=== PATIENT | male | born 1960 | race Caucasian/White ===

== ENCOUNTER 2021-11-26 10:44 | Emergency (ER) | payer OTHER, SELFPAY ==
--- NOTE | ~2021-11-26 | XR_ITS ---
EXAMINATION: XR ankle RT min 3V, XR knee RT 2V, XR tibia fibula RT 2V DATE: 11/26/2021 11:51 INDICATION: Right knee, ankle and lower leg pain post fall on ice TECHNIQUE: 1. AP and lateral views of the right knee were obtained. 2. AP and lateral views of the right tibia and fibula were obtained. 3. AP, mortise, and lateral views of the right ankle were obtained. COMPARISON: None. FINDINGS: Bone alignment is normal from the right knee through the right ankle and visualized right foot. No fr actures. Joint spaces are normal. Suggestion of possible small right knee joint effusion however the lateral projection is slightly obliqued suboptimal profiling of the region of the suprapatellar pouch . No ankle joint effusion. Small Achilles and plantar calcaneal spurs. IMPRESSION: 1. No acute osseous abnormality at the right knee, lower leg, ankle and visualized foot. 2. Possible small to moderate sized right knee joint effusion. Reviewed, dictated and finalized at location A. ET STRINGER IMPRESSION: 1. No acute osseous abnormality at the right knee, lower leg, ankle and visuali zed foot. 2. Possible small to moderate sized right knee joint effusion. IMPRESSION: 1. No acute osseous abnormality at the right knee, lower leg, ankle and visuali zed foot. 2. Possible small to moderate sized right knee joint effusion.
[2021-11-26 11:00] VITALS: BP 112/70; PULSE 66; RESP 18; TEMP 36.6; O2SAT 100
--- NOTE | 2021-11-26 11:57 | ED.LOWEXIN ---
HPI - Extremity Injury (Lower) General Chief Complaint: Extremity Injury, Lower Stated Complaint: R leg pain Time Seen by Provider: 11/26/21 11:19 Source: patient Mode of arrival: ambulatory Limitations: no limitations History of Present Illness HPI Narrative: Patient is a 61-year-old male complaining of right knee, right leg and right ankle pain after he slipped on a slippery surface at work. Patient states his pain is a 9 out of 10, aching, worse with palpation and movement. Patient was able to stand up and ambulate after the fall. Patient denies any head, neck, chest, back, abdomen, pelvis or any other extremity pain/injury. Related Data Allergies Allergy/AdvReac Type Severity Reaction Status Date / Time No Known Allergies Allergy Verified 11/26/21 11:05 Review of Systems Review of Systems: All systems reviewed & are unremarkable except as noted in HPI and below Constitutional: Constitutional: Denies body ache(s), Denies chills, Denies excessive sweating, Denies fatigue, Denies fever(s), Denies headache(s), Denies lethargy, Denies malaise, Denies weakness and Denies weight loss Eyes: Eyes: Denies blurry vision, Denies change in vision and Denies loss of vision ENT: Denies dizziness, Denies ear discharge, Denies headache(s), Denies lip swelling, Denies epistaxis, Denies nasal congestion, Denies neck pain, Denies throat swelling and Denies tongue swelling Cardiovascular: Cardiovascular: Denies chest pain, Denies chest pain at rest, Denies chest pain with activity, Denies diaphoresis, Denies rapid heart rate, Denies edema, Denies irregular heart rhythm, Denies lightheadedness, Denies palpitations, Denies dyspnea and Denies dyspnea on exertion Respiratory: Respiratory: Denies chest congestion, Denies cough, Denies hemoptysis, Denies dyspnea and Denies dyspnea on exertion Gastrointestinal: Gastrointestinal: Denies abdominal pain, Denies melena, Denies hematochezia, Denies diarrhea, Denies nausea, Denies vomiting and Denies hematemesis Musculoskeletal: Musculoskeletal: Denies neck pain and Denies numbness Neurologic: Denies Abnormal speech present, Denies abnormal gait, Denies confusion, Denies dizziness, Denies headache(s), Denies focal weakness, Denies loss of vision, Denies numbness, Denies Other visual disturbances, Denies Sensory deficit (Neuro) and Denies weakness Psychiatric: Psychiatric: Denies confusion, Denies depression, Denies auditory hallucinations, Denies homicidal ideation and Denies suicidal ideation Endocrine: Endocrine: Denies cold intolerance, Denies excessive sweating, Denies fatigue, Denies heat intolerance and Denies palpitations Hematologic/Lymphatic: Hematologic/Lymphatic: Denies easy bleeding and Denies easy bruising Allergic/Immunologic: Allergic/Immunologic: Denies lip swelling, Denies throat swelling and Denies tongue swelling PMFSH Comments Past medical history: None Family history: None Social history: Positive for smoker, no EtOH or drug use Exam Const: General: cooperative, healthy appearing, comfortable, no acute distress, well developed, alert and awake; No confusion Orientation/consciousness: oriented to person, oriented to place, oriented to time, patient oriented x3 and No confusion Limitations: no limitations HENMT: Head: normal to inspection, normocephalic and atraumatic Ears: hearing grossly normal bilaterally, TM normal on the right and TM normal on the left General nose exam: Normal external nose present, Normal nares present and No nasal discharge present Face and sinus: normal facial exam Mouth: Yes Normal oral and palatal mucosa present, Yes lip normal, Yes tongue normal and Yes oropharynx normal Throat: posterior oropharynx normal, tonsils normal and uvula midline Eyes: General: appearance normal, both eyes and all related structures Pupils: Equal, round and reactive pupils present EOM: EOMs intact bilaterally Neck: Neck: normal visual inspection, full ROM, no lymphadenopathy
[2021-11-26] MEDS: KETOROLAC 30 MG/ML VIAL (*BKC) IV PUSH (12:05)
[2021-11-26] MEDS: HYDROcodone/acetaminophen (*CRX) 5-325 MG TABLET 1 TAB PO (12:06)
[2021-11-26] MEDS: diazePAM (*CRX) 5 MG TABLET PO (12:06)
[2021-11-26 14:41] VITALS: BP 136/87; PULSE 86; RESP 18; O2SAT 97
== END 2021-11-26 14:42 | disposition home or self-care (01) ==
PROVIDERS: Emergency Provider Emergency Medicine
DX: S86.911A Strain of unspecified muscle(s) and tendon(s) at lower leg level, right leg, initial encounter (principal); W18.40XA Slipping, tripping and stumbling without falling, unspecified, initial encounter
CPT/HCPCS: 73560; 73590; 73610; 96374; 99284; A9270; J1885

== ENCOUNTER 2022-12-02 20:06 | Emergency (ER) | payer OTHER, SELFPAY ==
[2022-12-02 20:27] VITALS: BP 151/80; PULSE 84; RESP 16; TEMP 36.8; O2SAT 98
[2022-12-02 20:38] LABS: Basophils Absolute Auto 0.1 K/mm3 (0.0-0.1); Basophils Percent Auto 0.5 % (0.2-1.2); Eosinophils Absolute Auto 0.5 K/mm3 (0-0.3); Eosinophils Percent Auto 4.9 % (0-4.4); Hematocrit 43.2 % (42.0-52.0); Hemoglobin 14.9 g/dL (14.0-18.0); Immature Granulocyte Absolute 0.03 K/mm3 (0.00-0.031); Immature Granulocyte Percent A 0.3 % (0-0.5); Lymphocytes Absolute Auto 1.71 K/mm3 (0.9-3.2); Lymphocytes Percent Auto 18.6 % (18.3-44.2); Mean Corpuscular HGB Conc 34.5 g/dl (32-36); Mean Corpuscular Hemoglobin 30.2 pg (26-34); Mean Corpuscular Volume 87.6 fl (80-100); Mean Platelet Volume 10.1 fl (7.4-10.4); Monocytes Absolute Auto 0.5 K/mm3 (0.1-0.6); Monocytes Percent Auto 5.5 % (2.6-8.5); Neutrophils Absolute Auto 6.5 K/mm3 (1.3-6.7); Neutrophils Percent Auto 70.2 % (45.5-73.1); Platelet Count Result 206 k/mm3 (150-375); Red Blood Count 4.93 M/mm3 (4.6-6.20); White Blood Count 9.2 K/mm3 (4.5-10.0)
[2022-12-02 20:46] LABS: Anion Gap 8 mmol/L (8-16); Blood Urea Nitrogen 20 mg/dL (9-20); Calcium 8.7 mg/dL (8.4-10.2); Carbon Dioxide 25 mmol/L (22-30); Chloride 107 mmol/L (98-107); Estimated CRCL calculation 70 ml/min; Estimated Glomerular Filt Rate > 60; Glucose 149 mg/dL (65-110); Potassium 3.7 mmol/L (3.4-5.0); Sodium 140 mmol/L (137-145)
[2022-12-02 20:49] LABS: Prothrombin Time 12.9 Seconds (11.1-14.7)
[2022-12-02 20:50] LABS: Partial Thromboplastin Time 27.8 SECONDS (22.3-36.8)
[2022-12-02 21:33] VITALS: BP 146/92; PULSE 84; RESP 12; O2SAT 100
--- NOTE | 2022-12-02 21:34 | ED.GENADULT ---
HPI - General Adult General Chief complaint: Urogenital-Male Stated complaint: SWELLING AFTER ED SHOT Time Seen by Provider: 12/02/22 21:22 History of Present Illness HPI narrative: Is a 62-year-old male presenting ED with a priapism. Patient was at an ED clinic earlier today. He said that the intervention involved him getting tapped right above his penis on the pubic bone. There is no actual injection into his penis that he is aware of.After that he was able to get an erection. He did get it to detumesce in the clinic. However when he went home it was still partially erect. Patient then came to the hospital for re-evaluation. Related Data Allergies Allergy/AdvReac Type Severity Reaction Status Date / Time No Known Allergies Allergy Verified 11/26/21 11:05 [facility] Past Medical History Medical History Hypertension Social History Social History Social History: Denies alcohol tobacco or drug use Exam Narrative: APPEARANCE: No apparent distress. Head: atraumatic. EYES: EOMI, NOSE: Atraumatic NECK: Trachea midline RESPIRATORY: No increased rate of breathing CARDIOVASCULAR: RRR, ABDOMINAL: Non-distended MUSCULOSKELETAl: No obvious deformities NEURO: Alert. Moving 4/4 extremities SKIN:: Warm, dry. Normal color PSYCHIATRIC: Normal affect Genital exam: detumesced penis Course Vital Signs Vital signs: Vital Signs Temperature 98.2 F 12/02/22 20:27 Pulse Rate 84 12/02/22 20:27 Respiratory Rate 16 12/02/22 20:27 Blood Pressure 151/80 H 12/02/22 20:27 Pulse Oximetry 98 12/02/22 20:27 Oxygen Delivery Room Air 12/02/22 20:27 Temperature 98.2 F 12/02/22 20:27 Pulse Rate 84 12/02/22 21:33 Respiratory Rate 12 12/02/22 21:33 Blood Pressure 146/92 H 12/02/22 21:33 Pulse Oximetry 100 12/02/22 21:33 Oxygen Delivery Room Air 12/02/22 20:27 Medical Decision Making MDM Narrative Medical decision making narrative: -Presentation: This 62-year-old presenting with priapism. It resolved at time of evaluation. -DDX includes but is not limited to: Priapism, , normal erection -Co-morbidities complicating care:Hypertension, ED -Social determinants of health: Non-contributary -External Chart Review: none -Hx from independent Sources: none -Discussion of Management/Consultants: none -Independent interpretation of studies: none -Dx tests considered but not ordered: ABG, the patient no longer has an erection -Procedures: none -Interventions: none -Shared decision making / Disposition: patient arrived for priapism. It resolved at time of my evaluation. Patient given return precautions. -RX Vital Signs Vital Signs: Vital Signs Temperature 98.2 F 12/02/22 20:27 Pulse Rate 84 12/02/22 20:27 Respiratory Rate 16 12/02/22 20:27 Blood Pressure 151/80 H 12/02/22 20:27 Pulse Oximetry 98 12/02/22 20:27 Oxygen Delivery Room Air 12/02/22 20:27 Temperature 98.2 F 12/02/22 20:27 Pulse Rate 84 12/02/22 21:33 Respiratory Rate 12 12/02/22 21:33 Blood Pressure 146/92 H 12/02/22 21:33 Pulse Oximetry 100 12/02/22 21:33 Oxygen Delivery Room Air 12/02/22 20:27 Lab Data 12/02/22 20:23 12/02/22 20:23 Labs: Lab Results 12/02/22 12/02/22 12/02/22 Range/Units 20:23 20:23 20:23 WBC 9.2 (4.5-10.0) K/mm3 RBC 4.93 (4.6-6.20) M/mm3 Hgb 14.9 (14.0-18.0) g/dL Hct 43.2 (42.0-52.0) % MCV 87.6 (80-100) fl MCH 30.2 (26-34) pg MCHC 34.5 (32-36) g/dl RDW 13.0 (11.5-14.5) % Plt Count 206 (150-375) k/mm3 MPV 10.1 (7.4-10.4) fl Immature Gran % (Auto) 0.3 (0-0.5) % Neut % (Auto) 70.2 (45.5-73.1) % Lymph % (Auto) 18.6 (18.3-44.2) % Grant % (Auto) 5.5 (2.6-8.5) % Eos % (Auto) 4.9 H (0-4.4) % Baso % (Auto) 0.5 (0.2-1.2) % Ly
== END 2022-12-02 22:06 | disposition home or self-care (01) ==
LOC: ANHED 21:54
PROVIDERS: Emergency Medicine; Emergency Provider Emergency Medicine
DX: N48.30 Priapism, unspecified (principal); I10 Essential (primary) hypertension
CPT/HCPCS: 36415; 80048; 85025; 85610; 85730; 99283

== ENCOUNTER 2023-05-03 10:14 | Emergency (ER) | payer OTHER, SELFPAY ==
[2023-05-03] VITALS (21 sets, daily range): BP systolic 124–135; BP diastolic 81–106; PULSE 66–86; RESP 12–19; O2SAT 95–100
--- NOTE | ~2023-05-03 | XR_ITS ---
Clinical Indication: Chest pain PA and lateral views of the chest: Comparison: None Findings: The lungs are clear, without evidence of focal consolidation or pleural effusion. Cardiome diastinal silhouette is within normal limits. Bones and soft tissues are unremarkable. Impression: Normal chest. Reviewed, dictated and finalized at location . Impression: Normal chest.
--- NOTE | 2023-05-03 10:17 | ECG_ITS ---
Measurements Intervals [place] Rate: 88 P: 55 WA: 143 QRS: 15 QRSD: 118 T: 34 QT: 342 QTc: 414 Interpretive Statements SINUS RHYTHM INTRAVENTRICULAR CONDUCTION DELAY BASELINE ARTIFACT- I, II, III, AVR, AVL, AVF BORDERLINE ECG NO PREVIOUS ECG AVAILABLE FOR COMPARISON Electronically Signed On 05-03-2023 10:59:50 CDT by Keegan Adair D.O.
[2023-05-03 10:41] LABS: Basophils Absolute Auto 0.1 K/mm3 (0.0-0.1); Basophils Percent Auto 0.9 % (0.2-1.2); Eosinophils Absolute Auto 0.3 K/mm3 (0-0.3); Eosinophils Percent Auto 3.1 % (0-4.4); Hemoglobin 14.9 g/dL (14.0-18.0); Immature Granulocyte Absolute 0.03 K/mm3 (0.00-0.031); Immature Granulocyte Percent A 0.4 % (0-0.5); Lymphocytes Absolute Auto 1.52 K/mm3 (0.9-3.2); Lymphocytes Percent Auto 19.1 % (18.3-44.2); Mean Corpuscular HGB Conc 33.9 g/dl (32-36); Mean Corpuscular Volume 88.7 fl (80-100); Monocytes Absolute Auto 0.4 K/mm3 (0.1-0.6); Monocytes Percent Auto 5.5 % (2.6-8.5); Neutrophils Absolute Auto 5.7 K/mm3 (1.3-6.7); Platelet Count Result 253 k/mm3 (150-375); Red Blood Count 4.96 M/mm3 (4.6-6.20)
[2023-05-03 10:48] LABS: Alanine Aminotransferase 26 U/L (6-50); Albumin Level 4.4 g/dL (3.5-5.1); Alkaline Phosphatase 97 U/L (38-126); Anion Gap 9 mmol/L (8-16); Aspartate Amino Transferase 25 U/L (17-59); Bilirubin,Total 0.4 mg/dL (0.2-1.3); Blood Urea Nitrogen 25 mg/dL (9-20); Calcium 9.2 mg/dL (8.4-10.2); Carbon Dioxide 23 mmol/L (22-30); Chloride 106 mmol/L (98-107); Estimated CRCL calculation 57 ml/min; Estimated Glomerular Filt Rate > 60; Glucose 100 mg/dL (65-110); Lipase 63 U/L (23-300); Sodium 138 mmol/L (137-145)
[2023-05-03 10:58] LABS: INR 0.9; Prothrombin Time 12.8 Seconds (11.1-14.7)
[2023-05-03 10:59] LABS: Partial Thromboplastin Time 27.6 SECONDS (22.3-36.8); Troponin I < 0.012 ng/mL (0.000-0.034)
[2023-05-03] MEDS: ASPIRIN 81 MG CHEWABLE TABLET 324 MG PO (11:16)
--- NOTE | 2023-05-03 12:18 | ED.CHESTPAIN ---
HPI - Chest Pain General Chief Complaint: Chest Pain Stated Complaint: chest pain Time Seen by Provider: 05/03/23 11:29 Source: patient, RN notes reviewed and old records reviewed Mode of arrival: ambulatory Limitations: no limitations History of Present Illness HPI narrative: This is a 62 year old male with history of hypertension who presents for evaluation of intermittent chest discomfort. Patient reports he noticed left chest discomfort yesterday while watching tv. He states the pain intermittent and only last for 1 minute. He is unsure of any exacerbating symptoms. He also reports he had right side chest pain as well but it was at a different time than his left chest pain. He denies pain radiating to his back. He denies associated nausea, vomiting, fever, chills, cough, dizziness or diaphoresis with his chest pain. He denies any chest pain currently, Related Data Allergies Allergy/AdvReac Type Severity Reaction Status Date / Time No Known Allergies Allergy Verified 05/03/23 11:32 Review of Systems Constitutional: Constitutional: Denies weakness Cardiovascular: Cardiovascular: Reports chest pain, Denies syncope, Denies rapid heart rate, Denies irregular heart rhythm, Denies leg edema and Denies dyspnea Respiratory: Respiratory: Denies chest congestion, Denies hemoptysis, Denies excessive phlegm production and Denies dyspnea Gastrointestinal: Gastrointestinal: Denies abdominal pain, Denies hematochezia, Denies diarrhea and Denies vomiting Genitourinary: Genitourinary: Denies hematuria, Denies dysuria, Denies penile discharge and Denies testicular pain Musculoskeletal: Musculoskeletal: Denies joint swelling, Denies loss of height and Denies muscle weakness Neurologic: Denies syncope, Denies focal weakness and Denies weakness PMFSH Past Medical History Medical History Hypertension Surgical History Surgical History (Updated 05/03/23 @ 18:29 by Divya Lewis MD) No pertinent past surgical history Social History Social History Social History: Denies alcohol tobacco or drug use Exam Const: General: no acute distress and alert Nutritional Appearance: well nourished Orientation/consciousness: patient oriented x3 Limitations: no limitations HENMT: Head: normal to inspection Eyes: EOM: EOMs intact bilaterally Chest: Chest palpation & inspection: normal inspection of the chest Resp: Effort & Inspection: normal respiratory effort Auscultation: clear to auscultation bilaterally Cardio: Rate: regular rate Rhythm: regular rhythm Heart sounds: no murmurs GI: GI Palp: Yes Soft to palpation, No Tenderness to palpation present (GI), No Guarding due to palpation present (GI) and No Rigid due to palpation Auscultation: normal bowel sounds Skin: General skin exam: normal color Rashes: no rashes Wounds: no wounds Neuro: General: patient oriented x3, moves all extremities and CN's II-XI intact bilaterally Psych: Mental Status: mental status grossly normal Affect: normal affect Attitude: cooperative Course Reevaluation(s) Date: 05/03/23 Time: 14:10 Vital Signs Vital signs: Vital Signs Pulse Rate 86 05/03/23 10:27 Respiratory Rate 18 05/03/23 10:27 Blood Pressure 135/83 05/03/23 10:27 Pulse Oximetry 100 05/03/23 10:27 Oxygen Delivery Room Air 05/03/23 10:27 Pulse Rate 76 05/03/23 14:24 Respiratory Rate 18 05/03/23 14:24 Blood Pressure 128/83 05/03/23 14:24 Pulse Oximetry 96 05/03/23 14:24 Oxygen Delivery Room Air 05/03/23 11:18 MDM - Chest Pain MDM Narrative Medical decision making narrative: Patient presents with atypical chest pain. Chest pain protocol placed. Patient is painfree in ER. Heart score 3 with no chest pain. troponin negative. I Discussed with patient he will need outpatient evaluation by PCP and to return if symptoms wors
[2023-05-03 13:41] LABS: Troponin I < 0.012 ng/mL (0.000-0.034)
== END 2023-05-03 14:26 | disposition home or self-care (01) ==
PROVIDERS: Emergency Provider General Practice
DX: R07.9 Chest pain, unspecified (principal); I10 Essential (primary) hypertension
CPT/HCPCS: 36415; 71046; 80053; 83690; 84484; 85025; 85610; 85730; 93005; 99284; A9270

== ENCOUNTER 2023-12-22 11:15 | Emergency (ER) | payer OTHER, SELFPAY ==
[2023-12-22] VITALS (22 sets, daily range): BP systolic 130–148; BP diastolic 78–100; PULSE 77–93; RESP 12–25; TEMP 36.4–36.9; O2SAT 97–100
--- NOTE | 2023-12-22 | ECG_ITS ---
Measurements Intervals [place] Rate: 73 P: 39 OR: 141 QRS: 8 QRSD: 114 T: 38 QT: 371 QTc: 410 Interpretive Statements SINUS RHYTHM INTRAVENTRICULAR CONDUCTION DELAY BASELINE ARTIFACT- I, III BORDERLINE ECG COMPARED TO ECG 12/22/2023 11:54:05 NO SIGNIFICANT CHANGES Electronically Signed On 12-23-2023 14:05:49 HOSPITALITY DIRECTOR by Keegan Adair D.O.
--- NOTE | ~2023-12-22 | XR_ITS ---
EXAMINATION: XR chest 2V DATE: 12/22/2023 12:18 INDICATION: Shortness of breath and hypertension TECHNIQUE: PA and lateral views of the chest are obtained. COMPARISON: 05/03/2023 FINDINGS: The lungs are free of acute opacities. No pleural effusion or pneumothorax. The cardiomedia stinal silhouette is normal. There is mild thoracic spondylosis. IMPRESSION: 1. No acute cardiopulmonary abnormality. Reviewed, dictated and finalized at location B. BODY REPAIR ESTIMATOR
--- NOTE | 2023-12-22 11:42 | ECG_ITS ---
Measurements Intervals [place] Rate: 79 P: 62 RI: 149 QRS: 45 QRSD: 114 T: 40 QT: 355 QTc: 407 Interpretive Statements SINUS RHYTHM INTRAVENTRICULAR CONDUCTION DELAY BORDERLINE ECG COMPARED TO ECG 05/03/2023 10:22:45 NO SIGNIFICANT CHANGES Electronically Signed On 12-22-2023 12:24:55 [facility] by Keegan Adair D.O.
--- NOTE | 2023-12-22 11:43 | ED.SOB ---
HPI - SOB/Dyspnea General Chief Complaint: Shortness of Breath/Dyspnea <Bianca Diehl PA-C - Last Filed: 12/24/23 17:13> Stated Complaint: SOB <Bianca Diehl PA-C - Last Filed: 12/24/23 17:13> Time Seen by Provider: 12/22/23 11:40 <Bianca Diehl PA-C - Last Filed: 12/24/23 17:13> Focused HPI: This is a 63-year-old male that presents to the emergency department for exertional dyspnea. Worsening over the last couple of days. Reports unable to walk up his steps at work without feeling short of breath. No known history of heart or lung problems. Denies chest pain or lower extremity edema. GENERAL: Well-appearing, well-nourished, and in no acute distress. HEAD: Normocephalic, atraumatic. CHEST: Clear to auscultation. ?No respiratory distress. HEART: Regular rate and rhythm.? NEURO: ?Alert and oriented x3. Patient screened in triage and initial orders placed.? ?Additional care and disposition to be based upon?diagnostic testing and treatment. <Bianca Diehl PA-C - Last Filed: 12/24/23 17:13> History of Present Illness HPI Narrative: 63-year-old male with history of hypertension presenting with shortness of breath. Patient states that he has noticed over the last several weeks that he is more winded when he walks up the stairs at work. States that today he his chest felt tight so he became concerned and came in for evaluation. He denies chest pain or heaviness. States that he took several big breaths and his symptoms have since improved. States that he has had nasal congestion and sneezing lately but no coughing, sore throat, fevers. No leg swelling or orthopnea. No further complaints. <Kassie Larson MD - Last Filed: 12/27/23 14:58> Related Data Allergies/Adverse Reactions: Allergies Allergy/AdvReac Type Severity Reaction Status Date / Time No Known Allergies Allergy Verified 05/03/23 11:32 <Bianca Diehl PA-C - Last Filed: 12/24/23 17:13> Review of Systems Review of Systems: All systems reviewed & are unremarkable except as noted in HPI and below <Kassie Larson MD - Last Filed: 12/27/23 14:58> [facility] Past Medical History Medical History: Medical History Hypertension <Bianca Diehl PA-C - Last Filed: 12/24/23 17:13> Surgical History Surgical History: Surgical History No pertinent past surgical history <Bianca Diehl PA-C - Last Filed: 12/24/23 17:13> Social History Social History: Social History Social History: Denies alcohol tobacco or drug use <Bianca Diehl PA-C - Last Filed: 12/24/23 17:13> Exam Narrative: GENERAL: Well-appearing, In no acute distress, pleasant and cooperative HEAD: Normocephalic, atraumatic. EYES: PERRLA and EOMI. ENT: Mucous membranes moist. NECK: Supple. CHEST: Clear to auscultation. No respiratory distress. HEART: Regular rate and rhythm ABDOMEN: Soft, nontender, nondistended EXTREMITIES: Normal range of motion. No edema. SKIN: Warm, dry, no rash. NEURO: No focal deficits. Alert and oriented x3. PSYCH: Normal mood and affect. <Kassie Larson MD - Last Filed: 12/27/23 14:58> Course Vital Signs Vital signs: Vital Signs Temperature 97.5 F L 12/22/23 11:40 Pulse Rate 86 12/22/23 11:40 Respiratory Rate 18 12/22/23 11:40 Blood Pressure 145/78 H 12/22/23 11:40 Pulse Oximetry 99 12/22/23 11:40 Oxygen Delivery Room Air 12/22/23 11:40 Temperature 98.5 F 12/22/23 17:20 Pulse Rate 83 12/22/23 17:00 Respiratory Rate 17 12/22/23 17:00 Blood Pressure 138/89 12/22/23 16:30 Pulse Oximetry 98 12/22/23 17:00 Oxygen Delivery Room Air 12/22/23 14:10 <Bianca Diehl PA-C - Last Filed: 12/24/23 17:13> Vital Signs Temperature 97.5 F L 12/22/23
[2023-12-22 12:00] LABS: Basophils Percent Auto 0.7 % (0.2-1.2); Eosinophils Absolute Auto 0.2 K/mm3 (0-0.3); Eosinophils Percent Auto 3.9 % (0-4.4); Hematocrit 42.2 % (42.0-52.0); Hemoglobin 14.3 g/dL (14.0-18.0); Immature Granulocyte Absolute 0.02 K/mm3 (0.00-0.031); Immature Granulocyte Percent A 0.4 % (0-0.5); Lymphocytes Percent Auto 24.6 % (18.3-44.2); Mean Corpuscular HGB Conc 33.9 g/dl (32-36); Mean Corpuscular Hemoglobin 29.5 pg (26-34); Mean Platelet Volume 10.1 fl (7.4-10.4); Monocytes Absolute Auto 0.4 K/mm3 (0.1-0.6); Monocytes Percent Auto 6.8 % (2.6-8.5); Neutrophils Absolute Auto 3.6 K/mm3 (1.3-6.7); Neutrophils Percent Auto 63.6 % (45.5-73.1); Platelet Count Result 214 k/mm3 (150-375); Red Blood Count 4.85 M/mm3 (4.6-6.20); Red Cell Distribution Width 12.6 % (11.5-14.5); White Blood Count 5.7 K/mm3 (4.5-10.0)
[2023-12-22 12:10] LABS: Alanine Aminotransferase 20 U/L (6-50); Albumin Level 4.3 g/dL (3.5-5.1); Alkaline Phosphatase 80 U/L (38-126); Anion Gap 7 mmol/L (8-16); Aspartate Amino Transferase 23 U/L (17-59); Bilirubin,Total 0.5 mg/dL (0.2-1.3); Blood Urea Nitrogen 23 mg/dL (9-20); Calcium 9.5 mg/dL (8.4-10.2); Carbon Dioxide 24 mmol/L (22-30); Chloride 106 mmol/L (98-107); Estimated CRCL calculation 63 ml/min; Estimated Glomerular Filt Rate > 60; Glucose 119 mg/dL (65-110); Lipase 33 U/L (23-300); Potassium 3.9 mmol/L (3.4-5.0); Prothrombin Time 13.6 Seconds (11.1-14.7); Sodium 137 mmol/L (137-145)
[2023-12-22 12:12] LABS: Partial Thromboplastin Time 28.1 SECONDS (22.3-36.8)
[2023-12-22 12:14] LABS: D Dimer 0.28 ug/mL (<0.48)
[2023-12-22 12:22] LABS: Troponin I < 0.012 ng/mL (0.000-0.034)
[2023-12-22 15:21] LABS: Troponin I < 0.012 ng/mL (0.000-0.034)
== END 2023-12-22 17:21 | disposition home or self-care (01) ==
PROVIDERS: Physician Assistant; Emergency Provider Emergency Medicine
DX: R06.02 Shortness of breath (principal); I10 Essential (primary) hypertension
CPT/HCPCS: 36415; 71046; 80053; 83690; 84484; 85025; 85380; 85610; 85730; 93005; 99284

== ENCOUNTER 2024-08-08 18:01 | Emergency (ER) | payer OTHER, SELFPAY ==
[2024-08-08 18:04] VITALS: BP 144/97; PULSE 79; RESP 16; TEMP 36.2; O2SAT 99
--- NOTE | 2024-08-08 18:18 | ED_ITS ---
HPI - General Adult General Chief complaint: Unspecified Stated complaint: Priapism Time Seen by Provider: 08/08/24 18:13 History of Present Illness HPI narrative: Pt is being treated at [facility] for Erctile dysfunction. Pt is injecting at base of penis. Pt had intrcoarse and his penis did not completely go back to flacid state after 4 hrs but it is not erect or engourged. Pt has no pain but just wanted to be safe and get it checked out. Related Data Allergies Allergy/AdvReac Type Severity Reaction Status Date / Time No Known Allergies Allergy Verified 05/03/23 11:32 Review of Systems Review of Systems: All systems reviewed & are unremarkable except as noted in HPI and below PMFSH Past Medical History Medical History Hypertension Surgical History Surgical History No pertinent past surgical history Social History Social History Social History: Denies alcohol tobacco or drug use Exam : Penis: Yes normal penis, Yes circumcised and Yes other (not erect, small area of firmness near injection site no evidence of priapi) Course Vital Signs Vital signs: Vital Signs Temperature 97.1 F L 08/08/24 18:04 Pulse Rate 79 08/08/24 18:04 Respiratory Rate 16 08/08/24 18:04 Blood Pressure 144/97 H 08/08/24 18:04 Pulse Oximetry 99 08/08/24 18:04 Oxygen Delivery Room Air 08/08/24 18:04 Temperature 97.1 F L 08/08/24 18:04 Pulse Rate 79 08/08/24 18:04 Respiratory Rate 16 08/08/24 18:04 Blood Pressure 144/97 H 08/08/24 18:04 Pulse Oximetry 99 08/08/24 18:04 Oxygen Delivery Room Air 08/08/24 18:04 Medical Decision Making Vital Signs Vital Signs: Vital Signs Temperature 97.1 F L 08/08/24 18:04 Pulse Rate 79 08/08/24 18:04 Respiratory Rate 16 08/08/24 18:04 Blood Pressure 144/97 H 08/08/24 18:04 Pulse Oximetry 99 08/08/24 18:04 Oxygen Delivery Room Air 08/08/24 18:04 Temperature 97.1 F L 08/08/24 18:04 Pulse Rate 79 08/08/24 18:04 Respiratory Rate 16 08/08/24 18:04 Blood Pressure 144/97 H 08/08/24 18:04 Pulse Oximetry 99 08/08/24 18:04 Oxygen Delivery Room Air 08/08/24 18:04 Discharge Plan Discharge Clinical Impression: Erectile dysfunction Patient Disposition: Home, Self-Care Condition: Improved Instructions: Antibiotic Form, Priapism (ED) Prescriptions: No Action cyclobenzaprine 10 mg tablet 10 mg PO TID PRN (Reason: muscle spasm) Qty: 9 0RF naproxen [Naprosyn] 500 mg tablet 500 mg PO BID PRN (Reason: pain) Qty: 10 0RF Follow-up/Referrals: UNKNOWN,DOCTOR [Primary Care Provider] -
== END 2024-08-08 19:00 | disposition home or self-care (01) ==
PROVIDERS: Emergency Provider Emergency Medicine
DX: N52.9 Male erectile dysfunction, unspecified (principal); I10 Essential (primary) hypertension
CPT/HCPCS: 99281

== ENCOUNTER 2025-07-12 16:59 | Emergency (ER) | payer OTHER, SELFPAY ==
--- NOTE | 2025-07-12 17:01 | ECG_ITS ---
Test Date: 2025-07-12 17:05:43 Measurements Intervals [place] Rate: 77 P: 55 [place]: 151 QRS: 60 QRSD: 113 T: 44 QT: 359 QTc: 409 Interpretive Statements SINUS RHYTHM MODERATE INTRAVENTRICULAR CONDUCTION DELAY [110+ ms QRS DURATION] No previous ECG available for comparison Electronically Signed On 07-12-2025 19:07:52 CDT by Alena Talavera M.D.
[2025-07-12 17:26] VITALS: BP 132/77; PULSE 82; RESP 16; TEMP 36.8; O2SAT 99
--- OUTSIDE RECORDS SUMMARY | 2025-07-12 17:45 | XMS_ITS | Clinical Summary ---
Author Organization [facility] Address [address] [place] [address] Care Team Providers Care Flavorings Compounder Name Role Phone Jamie Hunt MD Primary Care Provider [phone] Allergies No known active allergies Medications multivitamin (DAILY-DERREK) tablet Take 1 Tablet by mouth daily. Active vitamin A-vitamin C-vitamin E (OCUVITE) Tablet Take 1 Tablet by mouth daily. Active amLODIPine (NORVASC) 5 mg tabletIndication s:Benign hypertension Take 1 Tablet (5 mg) by mouth daily. 100 Tablet 3 5 Active LORazepam (ATIVAN) 0.5 mg tabletIndication s:Situational stress Take 1 Tablet (0.5 mg) by mouth every 6 hours as needed for Anxiety. 30 Tablet 5 Active Additional Information Patient not taking.Reported on 06/08/2025 Active Problems Patient Care Coordination No te Formatting of this note migh t be different from the original. [id number] -- 01/10/25 Problem Noted Date Diagnosed Date Diarrhea 06/05/2025 Abnormal weight loss 06/05/2025 Overview (06/12/2025): 06/11 CT A/P->Bilateral nonobstructing renal calculi. Moderate-sized bilateral peripelvic renal cysts are suspected. Moderate hydronephrosis of the pelvicalyceal systems cannot be excluded. If further confirmation is indicated, a follow-up study with delayed images is recommended. Enlarged prostate gland. Situational stress 06/05/2025 Increased prostate specific antigen (PSA) veloci ty 01/10/2025 FHx: prostate cancer 01/10/2025 Overview (01/10/2025): 01/09 [facility] Gout screen 06/11/2024 Overview (06/06/2025): 06/10 URIC ACID 5.7->ON NO RX 06/11 URIC ACID 5.9 Daytime somnolence 06/09/2024 Hx of chest pain 11/20/2019 Overview (11/20/2019): 11/14/19 [facility] Gastroesophageal reflux disease 09/01/2018 Prostate cancer screening 03/04/2017 Overview (04/19/2025): PSA -- 04/03 1.3 -- 06/07 3.3 - 01/09 3.20 -- 02/09 3.39 -- 03/11 3.62 -- 05/11 3.58 Benign hypertension 03/04/2017 Preventative health care 03/04/2017 Overview (03/05/2017): 03/03 REQ LMD(NOREEN) RECORDS->RECEIVED, SCANNED Personal history of colonic polyps 03/04/2017 Overview (06/09/2024): 2014 CSCOPE REPORTEDLY DONE->03/03 REQ FERN RECORDS 2012 CSCOPE->POLYP 12/03 CSCOPE NL->NEXT 12/08 08/09 CSCOPE->POLYP->NEXT 08/16 Resolved Problems Problem Noted Date Diagnosed Date Resolved Date Pain in both upper extremities 11/20/2019 01/10/2025 Osteoarthritis of cervical spine 11/20/2019 01/10/2025 Acute bilateral low back mary jo n without sciatica 11/20/2019 06/11/2021 Chronic cough 09/01/2018 06/11/2021 Overview (09/01/2018): 09/04 CXR->No radiographic evidence of acute pulmonary disease. Epigastric pain 09/01/2018 01/10/2025 Screen for colon cancer 03/04/201702/15 Lip lesion 03/04/2017 05/20/2018 Encounters Date Type Department Care Team Description 06/25/2025 Orders Only [facility] [address] [place] [address] [place] [phone] Jamie Hunt MD Prostate cancer screening; FHx: prostate cancer; Increased prostate specific antigen (PSA) velocity 06/12/2025 9:09 AM CDT - 06/12/2025 11:59 PM CDT Hospital Encounter [facility] Imaging Services [facility] [address] [place] [address] Jamie Hunt MD Discharge Disposition: Home or Self Care 06/08/2025 2:30 PM CDT Office Visit [facility] Gastroenterology [address] [facility] [address] [place] [phone] Jamie Hunt MD [place], [place], [place] Change in bowel habits (Primary Dx); Weight loss 06/05/2025 11:40 AM CDT Office Visit [facility] Internal Medicine [facility] [phone] [place] [phone] Jamie Hunt MD Abnormal weight loss (Primary Dx); Diarrhea, unspecified type; Situational stress 06/04/2025 Telephone [facility] Internal Medicine [facility] [address] [place] [phone] Jamie Hunt MD Needs Orders Written 06/01/2025 Nurse Triage [facility] [address] [place] [phone] Jamie Hunt MD 05/28/2025 Orders Only [place] [address] [place] [phone] Jamie Hunt MD Prostate cancer screening; FHx: prostate cancer; Increased prostate specific antigen (PSA) velocity 04/30/2025 Orders Only [place] [address] [place] [phone] Jamie Hunt MD Prostate cancer screening; FHx: prostate cancer; Increased prostate specific antigen (PSA) velocity from Last 3 Months Immunizations Immunization Administration Dates Next Due (ADACEL/BOOSTRIX)(10 YR UP) TDAP VACCINE, 0.5ML, IM 09/01/2018 INFLUENZA VACCINE QUADRIVALENT 3 YR UP PF IM Family History Medical History Relation Name Comments Brain Cancer Father Hypertension Mother Leukemia Mother Colon Cancer Neg Hx Relation Name Status Comments Brother 1 Alive Brother 2 Alive Father (Age 68) Mother (Age 80) Social History Tobacco Use Types Packs/Day Years Used Date Smoking Tobacco: Never Passive Smoke Exposure: Never Smokeless Tobacco: Never Tobacco Cessation:Counseling Given: No Alcohol Use Standard Drinks/Week Comments Yes 4 (1 standard drink = 0.6 oz pur e alcohol) occasionally Feeling Safe Answer Date Recorded Are you in a relationship wi th someone who hurts you emotionally and/or physically? No 07/28/2023 Sex and Gender Information Value Date Recorded Sex Assigned at Not on file Legal Sex Male 4:19 PM CDT Gender Identity Not on file Sexual Orientation Not on file Last Filed Vital Signs Vital Sign Reading Time Taken Comments Blood Pressure 114/72 06/08/2025 2:27 PM CDT Pulse 73 06/08/2025 2:27 PM CDT Temperature 36.4 C (97.6 F) 01/10/2025 2:26 PM CDT Respiratory Rate 18 01/10/2025 2:26 PM CDT Oxygen Saturation 97% 06/05/2025 11:53 AM CDT Inhaled Oxygen Concentration - - Weight 70.4 kg (155 lb 3.2 oz) 06/05/2025 11:53 AM CDT Height 170.2 cm (5' 7) 06/05/2025 11:53 AM CDT Body Mass Index 24.31 06/05/2025 11:53 AM CDT Plan of Treatment Upcoming Encounters Date Type Department Care Team (Late st Contact Info) Description 07/23/2025 Orders Only [facility] [address] [place] [address] [place] Hunt [place] [id number] [place] [address] [address] [place] [address] Prostate cancer screening; FHx: prostate cancer; Increased prostate specific antigen (PSA) velocity 12/19/2025 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 Office Visit [facility] Primary Care [facility] [address] [facility] [address] [place] [address] [place] [address] [place] [address] Health Maintenance Due Date Last Done Comments FIT-DNA Q 3 years 2004 FIT/FOBT Q 1 year 2004 Flex Sig/CT Colonography Q 5 years 2004 PNEUMOCOCCAL VACCINE 50+ YEA RS (1 of 1 - PCV) 2009 ZOSTER VACCINE (1 of 2) 2009 RSV VACCINE (60+ or ) (1 - Risk 60-74 years 1-dose series) 2019 INFLUENZA VACCINE (#1) 2025 09/01/2018 COLORECTAL SCREENING 07/28/2028 07/28/2023, 07/28/2023, 12/13/2015 Colorectal Cancer Screening 07/28/2028 DTAP/TDAP/TD VACCINES (2 - T d or Tdap) 09/01/2028 09/01/2018 Preventative Visit- Commercial Completed 0 01/10/2025, 06/09/2024, 06/11/2023, Additional history exists Procedures Procedure Name Priority Date/Time Associated Diagnosis Comments CT ABDOMEN PELVIS W CONTRAST Routine 06/12/2025 9:40 AM CDT Abnormal weight loss Diarrhea, unspecified type URIC ACID Routine 06/05/2025 9:50 AM CDT TSH Routine 06/05/2025 9:50 AM CDT Preventative health care Screening for thyroid disorder LIPID PANEL Routine 06/05/2025 9:50 AM CDT Preventative health care Screening cholesterol level COMPREHENSIVE METABOLIC PANEL Routine 06/05/2025 9:50 AM CDT Preventative health care Screening for metabolic disorder CBC WITHOUT DIFFERENTIAL Routine 06/05/2025 9:50 AM CDT Preventative health care Screening for iron deficiency anemia PSA Routine 04/18/2025 1:32 PM CDT Prostate cancer screening FHx: prostate cancer Increased prostate specific antigen (PSA) velocity COLONOSCOPY REPORT 07/28/2023 10 :12 AM CDT from Last 3 Months or Most Recently Relevant to Health Maintenance Results * CT ABDOMEN PELVIS W CONTRAST (06/12/2025 9:40 AM CDT) Anatomical Region Laterality Modality Abdomen Computed Tomogra phy 06/12/2025 9:29 AM CDT Addenda Addendum by Clive Vásquez MD on 06/13/2025 3:17 PM CDT CORRECTED HEADING: CT ABDOMEN AND PELVIS WITH IV CONTRAST Impressions 06/12/2025 2:58 PM CDT IMPRESSION: Bilateral nonobstructing renal calculi. Moderate-sized bilateral peripelvic renal cysts are suspected. Moderate hydronephrosis of the pelvicalyceal systems cannot be excluded. If further confirmation is indicated, a follow-up study with delayed images is recommended. Enlarged prostate gland. Additional findings as noted above. The patient was scanned iterative reconstruction to minimize radiation dose. DICTATION LOCATION: Location 4 Narrative 06/12/2025 2:[address] CHEST, ABDOMEN AND PELVIS 06/12/24 INDICATION: Abnormal weight loss. IOPAMIDOL 61 % INTRAVENOUS SOLUTION (SINGLE USE VIAL) Given:100 mL FINDINGS: Images through the lung bases are unremarkable. The liver and spleen are unremarkable. There is no evidence of pancreatic mass or retroperitoneal adenopathy. A 6 mm calculus is noted in the midpole region of the right kidney as well as a 7 mm calculus in the lower pole of the left kidney. Moderate-sized bilateral peripelvic renal cysts are suspected. Moderate hydronephrosis cannot be excluded. The ureters are nondilated. Images through the pelvis reveal prostatic enlargement containing several calculi. Procedure Note Clive Vásquez MD - 06/12/2025 CT CHEST, ABDOMEN AND PELVIS 06/12/24 INDICATION: Abnormal weight loss. IOPAMIDOL 61 % INTRAVENOUS SOLUTION (SINGLE USE VIAL) Given:100 mL FINDINGS: Images through the lung bases are unremarkable. The liver and spleen are unremarkable. There is no evidence of pancreatic mass or retroperitoneal adenopathy. A 6 mm calculus is noted in the midpole region of the right kidney as well as a 7 mm calculus in the lower pole of the left kidney. Moderate-sized bilateral peripelvic renal cysts are suspected. Moderate hydronephrosis cannot be excluded. The ureters are nondilated. Images through the pelvis reveal prostatic enlargement containing several calculi. IMPRESSION: Bilateral nonobstructing renal calculi. Moderate-sized bilateral peripelvic renal cysts are suspected. Moderate hydronephrosis of the pelvicalyceal systems cannot be excluded. If further confirmation is indicated, a follow-up study with delayed images is recommended. Enlarged prostate gland. Additional findings as noted above. The patient was scanned iterative reconstruction to minimize radiation dose. DICTATION LOCATION: Location [address] ORDERABLES Edited Result - Final * CBC WITHOUT DIFFERENTIAL (06/05/2025 9:50 AM CDT) WBC 5.6 3.8 - 10.8 Thousand/u L [facility] RBC 5.00 4.20 - 5.80 Million/uL [facility] HEMOGLOBIN 15.0 13.2 - 17.1 g/dL [facility] HEMATOCRIT 45.9 38.5 - 50.0 % [facility] MCV 91.8 80.0 - 100.0 fL [facility] MCH 30.0 27.0 - 33.0 pg [facility] MCHC 32.7 32.0 - 36.0 g/dL [facility] Comment: For adults, a slight decrease in the calculated MCHC value (in the range of 30 to 32 g/dL) is most likely not clinically significant; however, it should be interpreted with caution in correlation with other red cell parameters and the patient's clinical condition. RDW 13.2 11.0 - 15.0 % [facility] PLATELETS 204 140 - 400 Thousand/u L [facility] MPV 11.2 7.5 - 12.5 fL [facility] [[email or web address] [facility]boom harriett [facility] Comment: FASTING:YES FASTING: YES Test Performed at: [facility] [[email or web address] [place] [address] [place] [address] [facility] Blood 06/05/2025 9:50 AM CDT 06/05/2025 9:51 AM CDT Jamie Hunt MD HEMATOLOGY ORDERABLES Final R esult Performing Organization Address City/[facility]/ZIP Code Phone Number [facility] [phone] [place] [address] [address] [place] [address] * URIC ACID (06/05/2025 9:50 AM CDT) URIC ACID 5.9 4.0 - 8.0 mg/dL [facility] [[email or web address]] dianboom harriett [facility] Comment: Therapeutic target for gout patients: <6.0 mg/dL Test Performed at: [facility] [place] [address] [address] [place] [address] [facility] 06/05/2025 9:50 AM CDT 06/05/2025 9:51 AM CDT us Jamie Hunt MD CHEMISTRY ORDERABLES Final Re sult Performing Organization Address City/[facility] Code Phone Number [facility] [phone] [place] [address] [address] [place] [place] [address] * TSH (06/05/2025 9:50 AM CDT) TSH 2.59 0.40 - 4.50 mIU/L [facility] [[email or web address] dianboom harriett [facility] Comment: FASTING:YES FASTING: YES Test Performed at: [facility] [address] [address] [place] [address] [facility] Blood 06/05/2025 9:50 AM CDT 06/05/2025 9:51 AM CDT us Jamie Hunt MD CHEMISTRY ORDERABLES Final Re sult Performing Organization Address City/[facility]/ZIP Code Phone Number [facility] [phone] [place] [address] [address] [place] [place] [address] * (ABNORMAL) LIPID PANEL (06/05/2025 9:50 AM CDT) CHOLESTEROL 176 <200 mg/dL [email or web address] HDL 58 > OR = 40 mg/dL [facility] [[email or web address] TRIGLYCERIDE 55 <150 mg/dL [facility] LDL CALCULATED 104(H) mg/dL (calc) [facility] [[email or web address]] dianboom harriett Dexter Comment: Reference range: <100 Desirable range <100 mg/dL for primary prevention; <70 mg/dL for patients with CHD or diabetic patients with > or = 2 CHD risk factors. LDL-C is now calculated using the Hans calculation, which is a validated novel method providing better accuracy than the Friedewald equation in the estimation of LDL-C. Kevin SS et al. INDIRA. 2013;310(19): 5823-6638 (http://education.Stazoo.com/faq/FKO488) CHOL/HDL RATIO 3.0 <5.0 (calc) [facility] [[email or web address]] [facility] NON-HDL CHOLESTEROL 118 <130 mg/dL (calc) [facility] Comment: For patients with diabetes plus 1 major ASCVD risk factor, treating to a non-HDL-C goal of <100 mg/dL (LDL-C of <70 mg/dL) is considered a therapeutic option. Test Performed at: [place] [address] [address] [place] [address] [facility] Blood 06/05/2025 9:50 AM CDT 06/05/2025 9:51 AM CDT Jamie Hunt MD CHEMISTRY ORDERABLES Final Re sult Performing Organization Address City/[facility]/ZIP Code Phone Number [facility] [phone] [place] [address] [address] [place] [place] [address] * (ABNORMAL) COMPREHENSIVE METABOLIC PANEL (06/05/2025 9:50 AM CDT) GLUCOSE 95 65 - 99 mg/dL [facility] Comment: Fasting reference interval BUN 29(H) 7 - 25 mg/dL [facility] CREATININE 0.99 0.70 - 1.35 mg/dL [facility] GFR 85 > OR = 60 mL/min/1.7 3m2 [facility] BUN/CREAT RATIO 29(H) 6 - 22 (calc) [facility] SODIUM 138 135 - 146 mmol/L [facility] POTASSIUM 4.1 3.5 - 5.3 mmol/L [facility] [[email or web address]] [facility]re[facility] CHLORIDE 104 98 - 110 mmol/L [facility] CO2 26 20 - 32 mmol/L [facility] [[email or web address]] [facility]ian[facility] CALCIUM 9.5 8.6 - 10.3 mg/dL [facility] [[email or web address]] dian[facility] TOTAL PROTEIN 7.3 6.1 - 8.1 g/dL [facility] ALBUMIN 5.0 3.6 - 5.1 g/dL [facility] [[email or web address]] [facility]bo[facility] har[facility] GLOBULIN 2.3 1.9 - 3.7 g/dL (calc) [facility] [[email or web address]] [facility] ALBUMIN/GLOBULIN RATIO 2.2 1.0 - 2.5 (calc) [facility] BILIRUBIN TOTAL 0.7 0.2 - 1.2 mg/dL [facility] [[email or web address]] [facility] ALKALINE PHOSPHATASE 70 35 - 144 U/L [facility] [[email or web address]] [facility] AST 14 10 - 35 U/L [facility] [[email or web address]] [facility] ALT 13 9 - 46 U/L [facility] Comment: FASTING:YES FASTING: YES Test Performed at: [facility] [address] [place] [address] Isiah Lara Blood 06/05/2025 9:50 AM CDT 06/05/2025 9:51 AM CDT us Jamie Hunt MD CHEMISTRY ORDERABLES Final Re sult [facility] [phone] [facility] [[email or web address] [place] [address] [place] [address] * PSA (04/18/2025 1:32 PM CDT) PSA 3.58 < OR = 4.00 ng/mL [facility] Comment: The total PSA value from this assay system is standardized against the WHO standard. The test result will be approximately 20% lower when compared to the equimolar-standardized total PSA (Buddy Gary). Comparison of serial PSA results should be interpreted with this fact in mind. This test was performed using the Siemens chemiluminescent method. Values obtained from different assay methods cannot be used interchangeably. PSA levels, regardless of value, should not be interpreted as absolute evidence of the presence or absence of disease. Test Performed at: [facility] [address] [place] [address] Isiah Lara MD Blood 04/18/2025 1:32 PM CDT 04/18/2025 1:33 PM CDT us Jamie Hunt MD CHEMISTRY ORDERABLES Final Re sult [facility] [phone] [facility] [address] [place] [address] * COLONOSCOPY REPORT (07/28/2023 10:12 AM CDT) Narrative Procedure Note Melissa Cristina MD - 07/28/2023 10:12 AM CDT [facility] Endoscopy Patient Name: Piyush Lakhani Procedure Date: 07/28/2023 Date of : 1960 Age: 63 Attending MD: Melissa Cristina , , Procedure: Colonoscopy Indications: High risk colon cancer surveillance: Personal history of colonic polyps Providers: Melissa Cristina Referring MD: Jaime Hunt MD Medicines: Propofol per Anesthesia Procedure: Informed consent was obtained for the procedure, including moderate sedation after risks were discussed. Based on the pre-procedure assessment, including review of the patient's medical history, medications, allergies, and review of systems, the patient was deemed to be an appropriate candidate for sedation. A timeout was performed. Continuous ECG monitoring, pulse oximetry, blood pressure monitoring, and direct observation were performed. The Colonoscope was introduced through the anus and advanced to the cecum, identified by appendiceal orifice and ileocecal valve. The colonoscopy was performed without difficulty. The patient tolerated the procedure well. The quality of the bowel preparation was good. Estimated Blood Loss: Estimated blood loss was minimal. Findings: A 7 mm polyp was found in the transverse colon. The polyp was sessile. The polyp was removed with a cold snare. Resection and retrieval were complete. The exam was otherwise without abnormality on direct and retroflexion views. Complications: No immediate complications. Impression: - One 7 mm polyp in the transverse colon, removed with a cold snare. Resected and retrieved. - The examination was otherwise normal on direct and retroflexion views. Recommendation: - Discharge patient to home (with escort). - Patient has a contact number available for emergencies. The signs and symptoms of potential delayed complications were discussed with the patient. Return to normal activities tomorrow. Written discharge instructions were provided to the patient. - Resume previous diet. - Continue present medications. - Await pathology results. - Repeat colonoscopy in 5-7 years for surveillance. - Return to primary care physician as previously scheduled. Melissa Cristina, 07/28/2023 10:11:55 AM This report has been signed electronically. Number of Addenda: 0 Procedure Date: 07/28/2023 9:42:[id number] [place] [address] Melissa Cristina MD GI PROCEDURE ORDERABLE S Final Result from Last 3 Months or Most Recently Relevant to Health Maintenance Insurance [place] [id number] Advance Directives For more information, please contact: [phone] * Full Code (Latest Code Status on File) Date Activated Date Inactivated Comments 07/28/2023 9:23 AM 07/28/2023 12:40 PM Care Teams Flavorings Compounder Relationship Specialty Start Date End Date Jamie Hunt MD PCP - General Internal Medicine 03/04/17
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
--- OUTSIDE RECORDS SUMMARY | 2025-07-12 17:45 | XMS_ITS | Encounter Summary ---
Author Organization [facility] Address [address] [place] [address] Care Team Providers Care Machine Operator Picker Name Role Phone Jamie Hunt MD Primary Care Provider [phone] Reason for Visit * Reason Comments Clinical Consult Before Scheduling Encounter Details Date Type Department Care Team (Late st Contact Info) Description 06/01/2025 Nurse Triage [facility] [address] [place] [address] [place] [id number] [address] Social History Tobacco Use Types Packs/Day Years Used Date Smoking Tobacco: Never Passive Smoke Exposure: Never Smokeless Tobacco: Never Alcohol Use Standard Drinks/Week Comments Yes 4 [...] on file Sexual Orientation Not on file documented as of this encounter Miscellaneous Notes * Telephone Encounter - Nilda Elias - 06/01/2025 4:21 PM CDT Copied from [facility] #[id number]. Topic: Symptomatic Care >> Jun 01, 2025 4:21 PM Nilda Hollingsworth wrote: Has this patient seen any provider (current or former) at the requested clinic in the past? Yes, Select the appropriate age range and symptom Patient has symptoms and is seeking care. 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
--- OUTSIDE RECORDS SUMMARY | 2025-07-12 17:45 | XMS_ITS | Encounter Summary ---
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
--- OUTSIDE RECORDS SUMMARY | 2025-07-12 17:46 | XMS_ITS | Clinical Summary ---
Author Organization [facility] Address [address] [place] [address] Care Team Providers Care Ham Rolling Machine Operator Name Role Phone Modesta Belle DO Primary Care Provider [phone] Source Comments [facility],non-owned Affiliates and Associated Physician Practices is amultiple site organization consisting of ambulatory clinics and hospital sitesin [place], [place], [place] and [place]. This disclosure is being madepursuant to the Care Everywhere program and may not contain all information available regarding this patient. Last updated 18.[facility] Allergies No known active allergies Medications * Be aware that medications may not be up to date on this document. Alwaysverify current medications with the patient. oxyCODONE-aceta minophen (PERCOCET) 5-325 MG tablet Take 0.5-1 Tabs by mouth every 6 hours as needed for Pain 30 Tab 0 12/05/2015 Active tamsulosin (FLOMAX) 0.4 MG capsule Take 1 Cap by mouth once daily Take 30 minutes after a meal at the same time each day. 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 Gender Identity Not on file Sexual Orientation Not on file Last Filed Vital Signs Vital Sign Reading Time Taken Comments Blood Pressure 138/99 12/05/2015 2:06 AM RESEARCH ADMINISTRATOR Pulse 70 12/05/2015 2:06 AM RESEARCH ADMINISTRATOR Temperature 36.7 C (98.1 F) 12/04/2015 7:08 PM RESEARCH ADMINISTRATOR Respiratory Rate 18 12/05/2015 2:06 AM RESEARCH ADMINISTRATOR Oxygen Saturation 100% 12/05/2015 2:06 AM RESEARCH ADMINISTRATOR Inhaled Oxygen Concentration - - Weight 70.3 kg (155 lb) 12/04/2015 7:08 PM RESEARCH ADMINISTRATOR Height 170.2 cm (5' 7) 12/04/2015 7:08 PM RESEARCH ADMINISTRATOR Body Mass Index 24.28 12/04/2015 7:08 PM RESEARCH ADMINISTRATOR Plan of Treatment Health Maintenance Due Date Last Done Comments COLOGUARD (AGES 45-75) - COL ON CA SCREENING 1959 COLON MONITORING 1959 COLONOSCOPY - COLON CA SCREENING 1959 CT COLONOGRAPHY - COLON CA SCREENING 1959 Colorectal Cancer Screening 1959 FIT - COLON CA SCREENING 1959 FLEX SIG - COLON CA SCREENING 1959 LIPID TESTING 1959 HEPATITIS C SCREENING 06/14/1977 DTAP/TDAP/TD VACCINES (1 - Tdap) 1978 PNEUMOCOCCAL VACCINE 50+ (1 of 1 - PCV) 2009 ZOSTER VACCINE (1 of 2) 2009 DEPRESSION SCREENING 10/18/2024 COVID-19 VACCINE (1 - 2023-2 5 season) 2025 INFLUENZA VACCINE (#1) 2025 Respiratory Syncytial Virus (RSV) Vaccine Pt: or over 60 yrs (1 - 1-dose 75+ series) 2034 HEPATITIS B VACCINE Aged Out No longe r eligible based on patient's age to complete this topic HIB VACCINE Aged Out No longer eligi ble based on patient's age to complete this topic HPV VACCINE Aged Out No longer eligi ble based on patient's age to complete this topic MENINGOCOCCAL (Group B) VACC INE SHARED DECISION-MAKING Aged Out No longer eligibl e based on patient's age to complete this topic MENINGOCOCCAL GROUPS A/C/Y/W VACCINE Aged Out No longer eligible b ased on patient's age to complete this topic Insurance [facility] Care Teams Ham Rolling Machine Operator Relationship Specialty Start Date End Date Modesta Belle DO [address] [place] [id number] PCP - General Family Medicine 12/05/15
[2025-07-12 18:41] VITALS: BP 135/90; PULSE 76; RESP 18; O2SAT 97
--- NOTE | 2025-07-12 19:49 | ED_ITS ---
HPI - Extremity Problem General Chief complaint: Extremity Problem,Nontraumatic Stated complaint: L ARM CRAMPING SINCE 1619 TODAY Time Seen by Provider: 07/12/25 19:02 History of Present Illness HPI Narrative: 65-year-old male presenting to the emergency department with a cramp in his left forearm. [facility] and answer the phone and talk to his brother wall flexing his left arm up to his ear. He then suddenly felt a tightness in his left forearm that he described as a charley horse. He states he has had similar symptoms in his legs but never had anything his upper extremity. Denies any headache, vision changes, neck pain, chest pain, jaw pain. No paresthesias in the fingertips. He was able to extend his arm and symptoms resolved on their own very briefly. No lasting symptoms and has no complaints at this time but was concerned so he came to the ER to get checked out. No recent lifestyle changes but he does endorse eating lots more sugar than normal. Denies any recent illnesses or injury. No history of stroke or TIA. No weakness or dropping things out of his left hand. No asymmetry or weakness. no traumatic injuries. No new or recent health concerns. Related Data Allergies Allergy/AdvReac Type Severity Reaction Status Date / Time No Known Allergies Allergy Verified 07/12/25 17:00 Review of Systems 2 Review of Systems: As reviewed above in HPI [facility] Past Medical History Medical History Hypertension Surgical History Surgical History No pertinent past surgical history Social History Social History Social History: Denies alcohol tobacco or drug use Exam 2 Narrative: GENERAL: [Well-appearing, well-nourished, and in no acute distress.] HEAD: [Normocephalic, atraumatic.] EYES: [PERRLA and EOMI.] ENT: Nares clear, no rhinorrhea or epistaxis. Mucous membranes moist. NECK: Supple. CHEST: [Clear to auscultation. No respiratory distress.] HEART: [Regular rate and rhythm]. No murmur heard. [Normal peripheral pulses.] ABDOMEN: [Soft, nondistended], [nontender], [No rigidity or guarding] EXTREMITIES: Normal range of motion. [No edema.] SKIN: Warm, dry, no rash. NEURO: [No focal deficits]. Alert and oriented [x3.] full strength and sensation, no sensory deficits on exam. No drift, no facial asymmetry. PSYCH: [Normal mood and affect.] Course Vital Signs Vital signs: Vital Signs Temperature 36.8 C 07/12/25 17:26 Pulse Rate 82 07/12/25 17:26 Respiratory Rate 16 07/12/25 17:26 Blood Pressure 132/77 07/12/25 17:26 Pulse Oximetry 99 07/12/25 17: Temperature 36.8 C 07/12/25 17:26 Pulse Rate 79 07/12/25 21:34 Respiratory Rate 16 07/12/25 21:34 Blood Pressure 125/81 07/12/25 21:34 Pulse Oximetry 97 07/12/25 21:34 Oxygen Delivery Room Air 07/12/25 18:41 MDM - Extremity (Nontraumatic) MDM Narrative Medical decision making narrative: 65-year-old male presenting to the emergency department with a cramp in his left forearm. Patient states that he was at the laundromat doing some laundry and answer the phone and talk to his brother wall flexing his left arm up to his ear. He then suddenly felt a tightness in his left forearm that he described as a charley horse. He states he has had similar symptoms in his legs but never had anything his upper extremity. Denies any headache, vision changes, neck pain, chest pain, jaw pain. No paresthesias in the fingertips. He was able to extend his arm and symptoms resolved on their own very briefly. No lasting symptoms and has no complaints at this time but was concerned so he came to the ER to get checked out. No recent lifestyle changes but he does endorse eating lots more sugar than normal. Denies any recent illnesses or injury. No history of stroke or TIA. No weakness or dropping things out of his left hand. No asymmetry or weakness. no traumatic injuries. No new or recent health concerns. Patient has normal vital signs and unremarkable physical examination with strong pulses and unremarkable neurological assessment. Symptoms consistent with muscle spasm or charley horse. He did have his arm flexed and talking on the phone before the forearm cramps started. Alleviated quickly thereafter. He does have some risk factors including hypertension and his age and we did offer him head CT and workup for possible neurological event such as TIA, but patient declined and does not think that is needed today. Agreed to have some blood work to assess electrolyte problems or other obvious abnormalities such as dehydration. CPK, CBC, CMP and magnesium level ordered. Patient has no symptoms at this time and remains hemodynamically stable. Labs show mild anemia but no other significant findings. No leukocytosis or platelet concerns. Normal electrolytes. No CPK elevation. Normal Organ function otherwise. Patient remained asymptomatic here. Made aware of his lab results and safe for discharge with PCP follow-up instructions and strict return precautions. Lab Data 07/12/25 19:54 07/12/25 19:54 Labs: Lab Results 07/12/25 Range/Units 19:54 WBC 6.3 (4.5-10.0) K/mm3 RBC 4.34 L (4.6-6.20) M/mm3 Hgb 12.8 L (14.0-18.0) g/dL Hct 37.7 L (42.0-52.0) % MCV 86.9 (80-100) fl MCH 29.5 (26-34) pg MCHC 34.0 (32-36) g/dl RDW 13.1 (11.5-14.5) % Plt Count 196 (150-375) k/mm3 MPV 9.9 (7.4-10.4) fl Immature Gran % (Auto) 0.3 (0-0.5) % Neut % (Auto) 57.6 (45.5-73.1) % Lymph % (Auto) 23.6 (18.3-44.2) % Winkler % (Auto) 9.4 H (2.6-8.5) % Eos % (Auto) 8.5 H (0-4.4) % Baso % (Auto) 0.6 (0.2-1.2) % Lymph # (Auto) 1.48 (0.9-3.2) K/mm3 Winkler # (Auto) 0.6 (0.1-0.6) K/mm3 Eos # (Auto) 0.5 H (0-0.3) K/mm3 Baso # (Auto) 0.0 (0.0-0.1) K/mm3 Abs Immat Gran (auto) 0.02 (0.00-0.031) K/mm3 Absolute Neuts (auto) 3.6 (1.3-6.7) K/mm3 Absolute Nucleated RBC 0.000 (0.0-0.012) K/mm3 Nucleated RBC % 0.0 (0.0-0.2) % Sodium 136 L (137-145) mmol/L Potassium 3.7 (3.4-5.0) mmol/L Chloride 104 (98-107) mmol/L Carbon Dioxide 26 (22-30) mmol/L Anion Gap 6 (4-12) mmol/L BUN 21 H (9-20) mg/dL Creatinine 0.89 (0.7-1.3) mg/dL Estim Creat Clear Calc 67 ml/min Estimated GFR > 60 (59 - ) Glucose 87 (65-110) mg/dL Calcium 8.5 (8.4-10.2) mg/dL Magnesium 2.2 (1.6-2.3) mg/dL Total Bilirubin 0.5 (0.2-1.3) mg/dL AST 24 (17-59) U/L ALT 16 (6-50) U/L Alkaline Phosphatase 96 (38-126) U/L Total Creatine Kinase 86 (55-170) U/L Total Protein 6.9 (6.3-8.2) g/dL Albumin 4.1 (3.5-5.1) g/dL Discharge Plan Discharge Clinical Impression: Muscle spasm Patient Disposition: Home Condition: Stable Instructions: Antibiotic Form Additional Instructions: Your laboratory studies are largely unremarkable. Your hemoglobin is slightly low at 12.8 but not significantly anemic. Follow with your PCP about this, likely unrelated to visit today. No signs of infection, dehydration, or muscle enzyme elevations. Symptoms consistent with a muscle cramp for spasm. No red flags on workup today but if he start experiencing recurrent symptoms, weakness in the arm, loss of sensation in the arm, difficulty walking, losing consciousness, chest pain or any other emergent concerns please return to the hospital at that time. Otherwise follow-up with regular care provider. Patient Language: Qatari Prescriptions: No Action cyclobenzaprine 10 mg tablet 10 mg PO TID PRN (Reason: muscle spasm) Qty: 9 0RF naproxen [Naprosyn] 500 mg tablet 500 mg PO BID PRN (Reason: pain) Qty: 10 0RF Follow-up/Referrals: PHYSICIAN NOT ON STAFF,NONSTAFF [Primary Care Provider] Time of Disposition: 21:29
[2025-07-12 19:59] LABS: Hematocrit 37.7 % (42.0-52.0); Hemoglobin 12.8 g/dL (14.0-18.0); Immature Granulocyte Percent A 0.3 % (0-0.5); Lymphocytes Absolute Auto 1.48 K/mm3 (0.9-3.2); Mean Corpuscular HGB Conc 34.0 g/dl (32-36); Mean Corpuscular Hemoglobin 29.5 pg (26-34); Mean Corpuscular Volume 86.9 fl (80-100); Nucleated Red Blood Cells Absolute Auto 0.000 K/mm3 (0.0-0.012); Nucleated Red Blood Cells Perc 0.0 % (0.0-0.2); Platelet Count Result 196 k/mm3 (150-375); Red Blood Count 4.34 M/mm3 (4.6-6.20); White Blood Count 6.3 K/mm3 (4.5-10.0)
[2025-07-12 20:09] LABS: Alanine Aminotransferase 16 U/L (6-50); Albumin Level 4.1 g/dL (3.5-5.1); Alkaline Phosphatase 96 U/L (38-126); Anion Gap 6 mmol/L (4-12); Aspartate Amino Transferase 24 U/L (17-59); Bilirubin,Total 0.5 mg/dL (0.2-1.3); Blood Urea Nitrogen 21 mg/dL (9-20); Calcium 8.5 mg/dL (8.4-10.2); Carbon Dioxide 26 mmol/L (22-30); Chloride 104 mmol/L (98-107); Creatine Kinase 86 U/L (55-170); Estimated CRCL calculation 67 ml/min; Estimated Glomerular Filt Rate > 60; Glucose 87 mg/dL (65-110); Magnesium 2.2 mg/dL (1.6-2.3); Potassium 3.7 mmol/L (3.4-5.0); Sodium 136 mmol/L (137-145); Total Protein 6.9 g/dL (6.3-8.2)
[2025-07-12 21:34] VITALS: BP 125/81; PULSE 79; RESP 16; O2SAT 97
== END 2025-07-12 21:36 | disposition home or self-care (01) ==
PROVIDERS: Emergency Provider Student in an Organized Health Care Education/Training Program
DX: R25.2 Cramp and spasm (principal)
CPT/HCPCS: 36415; 80053; 82550; 83735; 85025; 93005; 99283